=== PATIENT | female | born 1955 | race Caucasian/White ===

== ENCOUNTER 2022-02-25 11:51 | Outpatient (REF) | payer BC, SELFPAY | END 2022-02-25 11:52 | disposition home or self-care (01) | LOC: HO.BBR 11:51 | PROVIDERS: Visit Provider Physician Assistant Medical | DX: E83.119 Hemochromatosis, unspecified (principal) | CPT/HCPCS: 85018; 99195 ==

== ENCOUNTER 2022-03-06 14:33 | Outpatient (REF) | payer BC, SELFPAY | END 2022-03-06 14:34 | disposition home or self-care (01) | LOC: HO.BBR 14:33 | PROVIDERS: Visit Provider Physician Assistant Medical | DX: E83.119 Hemochromatosis, unspecified (principal) | CPT/HCPCS: 85014; 85018; 99195 ==

== ENCOUNTER 2022-03-12 14:30 | Outpatient (REF) | payer BC, SELFPAY | END 2022-03-12 14:31 | disposition home or self-care (01) | LOC: HO.BBR 14:30 | PROVIDERS: Visit Provider Physician Assistant Medical | DX: E83.119 Hemochromatosis, unspecified (principal) | CPT/HCPCS: 85014; 85018; 99195 ==

== ENCOUNTER 2022-03-20 10:46 | Outpatient (REF) | payer BC, SELFPAY | END 2022-03-20 10:47 | disposition home or self-care (01) | LOC: HO.BBR 10:46 | PROVIDERS: Visit Provider Physician Assistant Medical | DX: E83.119 Hemochromatosis, unspecified (principal) | CPT/HCPCS: 85018; 99195 ==

== ENCOUNTER 2022-12-25 07:22 | Day surgery (SDC) | payer MEDICARE, SELFPAY ==
--- NOTE | 2022-12-24 08:45 | HO.ANESPROP2 ---
Documented by User: Danielle Meneses NP 12/24/22 08:45 HPI - Anesthesia Eval Consult details Narrative: 67yo F for Colonoscopy [facility] Past Medical History Medical History (Updated 12/24/22 @ 07:28 by Cara Ambrosio, RN) History of dog bite HTN (hypertension) Neuropathy Tumor of ovary Surgical History Surgical History (Updated 12/24/22 @ 07:27 by Cara Ambrosio, RN) History of dilation and curettage History of removal of ovarian cyst History of repair of ACL Hx of total knee replacement Social History Social History Patient Tobacco Use Status: Former Tobacco user Are you DNR?: No Advance Directives: No Advance Directives Information Provided: Yes Nutrition Risks: No Nutritional Risk Meds Allergies Allergy/AdvReac Type Severity Reaction Status Date / Time No Known Allergies Allergy Verified 12/25/22 08:04 [No Known Allergies*] Home Medications Medication Instructions Recorded Confirmed Last Taken Type CoQ-10 12/24/22 Unknown History atenolol 25 mg tablet 25 mg PO DAILY 12/24/22 12/24/22 Unknown History calcium 12/24/22 Unknown History clonazepam 0.5 mg tablet 0.5 mg PO DAILY 12/24/22 12/24/22 Unknown History garlic 12/24/22 12/24/22 Unknown History magnesium gluconate 12/24/22 Unknown History metoprolol succinate 50 mg 50 mg PO DAILY 12/24/22 12/24/22 12/25/22 History tablet,extended release 24 hr red yeast rice 600 mg tablet 600 mg PO DAILY 12/24/22 12/24/22 Unknown History vitamin B complex 1 tab PO DAILY 12/24/22 12/24/22 Unknown History Exam Exam Date and Time: December 24, 2022 0845 Assessment and Plan Assessment Anesthesia Assessment: Chart Reviewed Documented by User: Cherry Renteria MD 12/25/22 09:04 [facility] Past Medical History Medical History (Updated 12/24/22 @ 07:28 by Cara Ambrosio RN) History of dog bite HTN (hypertension) Neuropathy Tumor of ovary Family History Family history of problems with anesthesia: No Surgical History Surgical History (Updated 12/24/22 @ 07:27 by Cara Ambrosio RN) History of dilation and curettage History of removal of ovarian cyst History of repair of ACL Hx of total knee replacement History of Problems with Anesthesia: No Social History Social History Patient Tobacco Use Status: Former Tobacco user Are you DNR?: No Advance Directives: No Advance Directives Information Provided: Yes Nutrition Risks: No Nutritional Risk Meds Allergies Allergy/AdvReac Type Severity Reaction Status Date / Time No Known Allergies Allergy Verified 12/25/22 08:04 [No Known Allergies*] Home Medications Medication Instructions Recorded Confirmed Last Taken Type CoQ-10 12/24/22 Unknown History atenolol 25 mg tablet 25 mg PO DAILY 12/24/22 12/24/22 Unknown History calcium 12/24/22 Unknown History clonazepam 0.5 mg tablet 0.5 mg PO DAILY 12/24/22 12/24/22 Unknown History garlic 12/24/22 12/24/22 Unknown History magnesium gluconate 12/24/22 Unknown History metoprolol succinate 50 mg 50 mg PO DAILY 12/24/22 12/24/22 12/25/22 History tablet,extended release 24 hr red yeast rice 600 mg tablet 600 mg PO DAILY 12/24/22 12/24/22 Unknown History vitamin B complex 1 tab PO DAILY 12/24/22 12/24/22 Unknown History Exam Airway Mallampati Class: II ( ultiple caps, implants) TM Dist: >3cm Neck ROM: Full Heart: rrr Lungs: cta Assessment and Plan Final Anesthetic Review Family History of Problems with Anesthesia: No History of Problems with Anesthesia: No NPO: Yes ASA Class: II Final Preanesthetic Review: No Changes in Pt Med Stat, Meds/Allgs Chart Reviewed and Consent Obtained/Reviewed Patient Risk: Intermediate Procedure Risk: Intermediate Anesthetic Plan Anesthetic Plan: MAC: Disposition: Standard PACU
[2022-12-25 06:50] VITALS: BMI 26.6
--- OUTSIDE RECORDS SUMMARY | 2022-12-25 07:24 | XMS_ITS | Continuity of Care Document ---
Author Name Unknown Organization [facility] Address [address] [place] [address]- Care Team Providers Care Hebrew Professor Name Role Phone Wicho Shi DO Primary Care Physician [phone] Encounter [facility] Date(s): 08/28/20 - 09/27/20 [facility] [address] [place] [id number] Attending Physician: Giovanni Chavis Admitting Physician: AdmtrGiovanni Referring Physician: Admtr ArBecki Allergies, Adverse Reactions, Alerts Substance Reaction Severity Status NKA Active Medications acetaminophen 325 mg oral tablet 650 mg, By Mouth, Every 6 hours, Refills 0, Maintenance, 05/03/19 6:55:18 EDT Start Date: 05/03/19 Status: Ordered Aspirin Tablet 325 mg, By Mouth, 2 times a day, Refills 0, Maintenance, 05/03/19 6:56:03 EDT Start Date: 05/03/19 Status: Ordered Atenolol = 25 mg, By Mouth, Daily, 0 Refills, Maintenance, 07/09/15 9:09:20 Start Date: 07/09/15 Status: Ordered CeleBREX 100 mg oral capsule 1 capsule = 100 mg, By Mouth, 2 times a day, 0 Refills, Maintenance, 08/09/19 10:58:00 EST Start Date: 08/09/19 Status: Ordered Clonazepam = 0.5 mg, By Mouth, Daily in AM, 0 Refills, Maintenance, 04/18/19 11:18:54 EDT Start Date: 04/18/19 Status: Ordered Diltiazem = 120 mg, By Mouth, Daily, 0 Refills, Maintenance, 05/02/19 8:06:15 EDT Start Date: 05/02/19 Status: Ordered docusate sodium 100 mg oral capsule 100 mg, 1, capsule, By Mouth, 2 times a day, Refills 0, Maintenance, 05/03/19 6:56:08 EDT Start Date: 05/03/19 Status: Ordered [place]-500 0 Refills, Maintenance, 01/06/16 13:20:20 Start Date: 01/06/16 Status: Ordered oxyCODONE 5 mg oral capsule 1 capsule = 5 mg, By Mouth, Every 6 hours, 0 Refills, Maintenance, 08/09/19 10:58:00 EST, Partial fill upon patient request Start Date: 08/09/19 Status: Ordered pantoprazole 40 mg oral delayed release tablet = 40 mg, By Mouth, Daily in AM, 0 Refills, Maintenance, 05/03/19 6:56:18 EDT, EC Tablet Start Date: 05/03/19 Status: Ordered Vitamin D3 By Mouth, Daily, 0 Refills, Maintenance Start Date: 06/23/11 Status: Ordered Problem List Condition Effective Dates Status Health Status Inform ant 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
--- OUTSIDE RECORDS SUMMARY | 2022-12-25 07:24 | XMS_ITS | Continuity of Care Document ---
Author Name Unknown Organization [facility] [place] Address [address] [place] [address]- Care Team Providers Care Associate Director Of Sales Name Role Phone Wicho Shi DO Primary Care Physician Encounter [facility] Date(s): 09/21/22 - 10/21/22 [facility] [address] [address]- Attending Physician: Giovanni Chavis Admitting Physician: Giovanni Chavis Referring Physician: Admtr ArBecki Allergies, Adverse Reactions, Alerts No Known Allergies Medications Magnesium Amino Acids Chelate By Mouth, 0 Refills, Maintenance, 06/10/22 10:11:00 EST, Partial fill upon patient request if the prescription is for a schedule II opioid drug. Start Date: 06/10/22 Status: Ordered metoprolol 25 mg oral tablet, extended release 25 mg, 1, tablet, By Mouth, Daily, Refills 0, Maintenance, 06/10/22 10:50:00 EST, Partial fill uponpatient request if the prescription is for a schedule II opioid drug. Start Date: 06/10/22 Status: Ordered [place]-500 0 Refills, Maintenance, 01/06/16 13:20:20 Start Date: 01/06/16 Status: Ordered Vitamin B12 0 Refills, Maintenance, 06/10/22 10:11:00 EST, Partial fill upon patient request if the prescription is for a schedule II opioid drug. Start Date: 06/10/22 Status: Ordered Vitamin D3 By Mouth, Daily, 0 Refills, Maintenance Start Date: 06/23/11 Status: Ordered Zinc = 140 mg, By Mouth, Daily, 0 Refills, Maintenance, 06/10/22 10:11:00 EST, Partial fill upon patientrequest if the prescription is for a schedule II opioid drug. Start Date: 06/10/22 Status: Ordered Problem List Condition Confirmation Course Effective Dates Status Health St atus Informant Vaginal atrophy Confirmed Active Benign essential HTN Confirmed Active Dyspareunia, female Confirmed Active Menopause Confirmed Active Osteopenia Confirmed Active Borderline serous cystadenoma of right ovary Confirmed Active Social History Social History Type Response Smoking Status Former smoker; Tobac co user in household: No; Other: Quit 30 years ago; entered on: 08/13/17 Sex Patient Care team information Care Team Personnel Name: Yasmany RN, Brock Wynn Position: [facility] RN Member Role: Primary Care Nurse Name: Wicho hSi DO Position: Reference Physician Member Role: PCP Address: Address: [address] [place] [address]- Name: Robbie FOWLER, Royce Charles Position: [facility] VACUUM EXTRACTOR OPERATOR MD Member Role: Lifetime VACUUM EXTRACTOR OPERATOR Physician Address: Address: [address] [place] [address]'s Health [place] [address]- Care Team Related Persons Name: JANNA COTTO Address: home [address] [place] [address] Name: JUSTIN JACKSON Address: home [address] [place] [address]
--- OUTSIDE RECORDS SUMMARY | 2022-12-25 07:24 | XMS_ITS | Continuity of Care Document ---
Author Name Unknown Organization [facility] Address [address] [place] [address], [address] [place] [address]- Care Team Providers Care Abalone Fisherman Name Role Phone Jesse Wicho MARTIN Primary Care Physician Encounter [facility] Date(s): 10/27/22 - 11/03/22 [facility] [address] [place] [address] Drive, [address] [place], [place] [address] Attending Physician: Kenny FOWLER, Ken Mckeon Referring Physician: Lyubov FOWLER, Uriah Goldsmith Allergies, Adverse Reactions, Alerts No Known Allergies Medications Alprazolam By Mouth, Refills 0, Maintenance, 10/27/22 13:18:00 EDT, Partial fill upon patient request if the prescription is for a schedule II opioid drug. Start Date: 10/27/22 Status: Ordered Clonazepam By Mouth, 3 times a day, 0 Refills, Maintenance, 10/27/22 13:18:00 EDT, Partial fill upon patient request if the prescription is for a schedule II opioid drug. Start Date: 10/27/22 Status: Ordered Magnesium Amino Acids Chelate By Mouth, 0 [...] opioid drug. Start Date: 06/10/22 Status: Ordered Quinlan-500 0 Refills, Maintenance, 01/06/16 13:20:20 Start Date: [...] serous cystadenoma of right ovary Confirmed Active Vital Signs Most recent to oldest [Reference Range]: 1 Height 162.5 cm (10/27/22 1:13 PM) Weight 70.4 kg (10/27/22 1:13 PM) Body Mass Index [18.5-24.99 kg/m2] 26.66 kg/m2 *H* (10/27/22 1:13 PM) Social History Social History Type Response Smoking Status Former smoker; Tobac co user in household: No; Other: Quit 30 years ago; entered on: 08/13/17 Sex Patient Care team information Care Team Personnel Name: Brock Jade RN Position: [facility] RN Member Role: Primary Care Nurse Name: Wicho Shi DO Position: Reference Physician Member Role: PCP Address: Address: [address] [place] [address]- Name: Royce Avalos MD Position: [facility] SAW SETTER MD Member Role: Lifetime SAW SETTER Physician Address: Address: [address] [place] [address] Women's Health [place] [address]- Care Team Related Persons Name: JANNA COTTO Address: home [address] [place] [address] Name: JUSTIN JACKSON Address: home [address] [place] [address]
--- OUTSIDE RECORDS SUMMARY | 2022-12-25 07:24 | XMS_ITS | Continuity of Care Document ---
Author Name Unknown Organization [facility] Address [address] [place] [address], [address] [place] [address]- Care Team Providers Care Fruit Pitter Name Role Phone Wicho Shi DO Primary Care Physician Encounter [facility] Date(s): 09/30/22 - 10/30/22 [facility] [address] [place] [address] Drive, [address] [place], [place] [address] Allergies, Adverse Reactions, Alerts No Known Allergies [...] opioid drug. Start Date: 06/10/22 Status: Ordered [place]-500 0 Refills, Maintenance, 01/06/16 13:20:20 Start Date: [...] team information Care Team Personnel Name: Yasmany MERAZ, Brock Wynn Position: [facility] RN Member Role: Primary Care Nurse Name: Wicho Shi DO Position: Reference Physician Member Role: PCP Address: Address: [address] [place] [address]- Name: Robbie FOWLER, Royce Charles Position: [facility] MATTRESS FINISHER MD Member Role: Lifetime MATTRESS FINISHER Physician Address: Address: [address] [place] [address] Women's Health [place] [address]- Care Team Related Persons Name: JANNA COTTO Address: home [address] [place] [address] Name: JUSTIN JACKSON Address: home [address] [place] [address]
--- OUTSIDE RECORDS SUMMARY | 2022-12-25 07:24 | XMS_ITS | Continuity of Care Document ---
Author Name Unknown Organization [facility] PIG CONVEYOR OPERATOR Oncolog y Address [address] [place] [address]- Care Team Providers Care Tents Assembler Name Role Phone Wicho Shi DO Primary Care Physician Encounter [facility] Date(s): 08/09/19 - 08/16/19 [facility] PIG CONVEYOR OPERATOR Oncology [address] [place] [address] [facility] Attending Physician: Mary Fischer MD Admitting Physician: Mary Fischer MD Referring Physician: Wicho Shi DO Allergies, Adverse Reactions, Alerts Substance Reaction Severity [...] 6:56:08 EDT Start Date: 05/03/19 Status: Ordered [place]-500 0 Refills, Maintenance, 01/06/16 13:20:20 Start Date: [...] Effective Dates Status Health Status Inform ant Vaginal atrophy(Confirmed) Active Benign essential HTN(Confirmed) Active Dyspareunia, female(Confirmed) Active Menopause(Confirmed) Active Osteopenia(Confirmed) Active 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 Vital Signs Most recent to oldest [Reference Range]: 1 Height 163 cm (08/09/19 10:39 AM) Weight 67.8 kg (08/09/19 10:39 AM) Oxygen Saturation [94-100 %] 100 % (08/09/19 10:39 AM) Pulse Rate [55-90 bpm] 109 bpm *H* (08/09/19 10:39 AM) Body Mass Index [18.5-24.99] 25.52 *H* (08/09/19 10:39 AM) Blood Pressure [90-138/55-84 mm Hg] 147/ 96mm Hg *H* (08/09/19 10:39 AM) Respiratory Rate [16-30 br/min] 18 br/mi n (08/09/19 10:39 AM) Temperature [96.8-100.4 DegF] 98 DegF (08/09/19 10:39 AM) Mode of Delivery (Oxygen) Room air (08/09/19 10:39 AM) Blood pressure sites Arm, right (08/09/19 10:39 AM) Temperature Route Oral (08/09/19 10:39 AM) Dry Weight 67.8 kg (08/09/19 10:39 AM) Weight Obtained Via Standing scale (08/09/19 10:39 AM) Dry Weight Obtained Via Standing scale (08/09/19 10:39 AM) Social History Social History Type Response Smoking Status Former smoker; Tobac co user in household: No; Other: Quit 30 years ago; entered on: 08/13/17 Sex
--- OUTSIDE RECORDS SUMMARY | 2022-12-25 07:24 | XMS_ITS ---
Author Name Sachin Riley Jr Address [address] [place] [address] Organization [facility] Address [address] [place] [address] Care Team Providers Care Bet Taker Name Role Phone Osvaldo AlanisSachin Unavailable [phone] PROBLEMS Type Condition ICD9-CM Code QRF08-PO Code Onset Dates Condition Status SNOMED Code Problem Fatty liver K76.0 Active 372643752 Problem Gastroesophageal reflux disease without esophagitis K21.9 Active 15878375 5 Problem Gallbladder polyp K82.4 Active 426201 003 Problem Gallstones K80.20 Active 824434449 Problem Colon cancer screening Z12.11 Active 787013718 ALLERGIES No Known Allergies ENCOUNTERS Encounter Location Date Diagnosis [facility] [address] [place] [id number] Dec, [facility] [address] [place] [phone] Oct, [facility] [address] [place] [phone] Oct, Gastroesophageal reflux disease without esophagitis K21.9 and Colon cancer screening Z12.11 [facility] [address] [place] [phone] Aug, [facility] [address] [place] [phone] Aug, [facility] [address] [place] [address] [place] [id number] Jul, [facility] [address] [place] [address] May, [facility] [address] [place] [address] Apr, [facility] [address] [place] [address] Apr, [facility] [address] [place] [address] Apr, Fatty liver K76.0 ; Colon cancer screening Z12.11 ; Gallbladder polyp K82.4 and Gallstones K80.20 IMMUNIZATIONS No Known Immunizations SOCIAL HISTORY Qualifiers Date Former Smoker REASON FOR REFERRAL FUNCTIONAL STATUS PLAN OF CARE Activity Details VITAL SIGNS Weight 155 lbs 2022-10-26 Weight 153 lbs 2017-04-30 Height 64.5 in 2022-10-26 Height 64.5 in 2017-04-30 BMI 26.19 kg/m2 2022-10-26 BMI 25.85 kg/m2 2017-04-30 Heart Rate 64 /min 2017-04-30 Temperature 97.7 degrees Fahrenheit Blood pressure systolic 000 mm Hg Blood pressure diastolic 00 mm Hg 2022-10 MEDICATIONS Medication Instructions Dosage Frequency Start Date End Date Duration Status Red Yeast Rice A ctive Atenolol 25 MG Orally Once a day 1 tablet 24h Active Metoprolol Succinate ER 50 MG 90 Active Calcium Active CoQ-10 Active Colyte with Flavor Packs 240 GM Orally Over the specified time. As directed 1 day(s) Active Garlic Active MiraLax (colon prep) 17 GM/SCOOP Orally begin at 5:00 p.m. the day before the procedure mixed with Gatorade or Crystal Light Oct, 1 day Active Magnesium Gluconate Active Omeprazole 20 MG Orally Once a day 1 capsule 30 minutes before morning meal 24h Oct, 30 day(s) Active Vitamin B Complex Active clonazePAM 0.5 MG Orally QD 1 tablet 24h Active PROCEDURES Procedure Date Ordered Result Body Site DOC RSN FOR NOT SCREEN/REC F/U HBP October 26, 2022 Pt scrn tbco id as non user October 26, 2022 DOC MEDS VERIFIED W/PT OR RE October 26, 2022 COLORECTAL CA SCREEN DOC REV October 26, 2022 RESULTS Name Result Date Reference Range GI BIOPSY 2017-08-20 G.I. BIOPSY REASON FOR VISIT screening, screening, colonoscopy, Patient presents today for consultation, Pt no show, fatty liver,elevated LFT's, results of colonoscopy biopsy, screening colonoscopy, add an EGD, needs different script for moviprp/not covered, Put on one year OV follow up, PATIENT PRESENTS TODAY FOR fatty liver,transaminasemia Insurance Providers Health Insurance Type Health Plan Insurance Address Health Plan Insurance Phone Health Plan Insurance Name Health Plan Coverage Dates Member ID Patient Relationship to Subscriber Patient Address Patient Phone Patient Name Patient Date of Subscriber ID Subscriber Name Subscriber Date of Group No [employer] [address] [facility] [id number] [employer] self LONNIE JACKSON [id number]
--- OUTSIDE RECORDS SUMMARY | 2022-12-25 07:24 | XMS_ITS | Continuity of Care Document ---
Author Name Unknown Organization [facility] Address [address] [place] [address], [address] [place] [address]- Care Team Providers Care Continuity Director Name Role Phone Wicho Shi DO Primary Care Physician Encounter [facility] Date(s): 10/27/22 - 11/26/22 [facility] [address] [place] [address], [address] [place] [address]- Attending Physician: Giovanni Chavis Admitting Physician: Giovanni Chavis Referring Physician: AdmtrGiovanni Allergies, Adverse Reactions, Alerts No Known Allergies [...] opioid drug. Start Date: 06/10/22 Status: Ordered [place]-500 0 Refills, Maintenance, 01/06/16 13:20:20 Start Date: [...] Team Personnel Name: Brock Jade RN Position: [facility] RN Member Role: Primary Care Nurse Name: Wicho Shi DO Position: Reference Physician Member Role: PCP Address: Address: [address] [place] [address]- Name: Robbie FOWLER, Royce Charles Position: [facility] INSTALLATION DRAFTER MD Member Role: Lifetime INSTALLATION DRAFTER Physician Address: Address: [address] [place] [address]'s Health [employer] [place] [address]- Care Team Related Persons Name: JANNA COTTO Address: [address] [place] [address] Name: JUSTIN JACKSON Address: home [address] [place] [address]
--- OUTSIDE RECORDS SUMMARY | 2022-12-25 07:24 | XMS_ITS | Continuity of Care Document ---
Author Name Unknown Organization [facility] Address [address] [place] [address]- Care Team Providers Care Voice Network Engineer Name Role Phone Wicho Shi DO Primary Care Physician Encounter [facility] Date(s): 07/31/19 - 07/31/[address] [address]- [facility] Attending Physician: Not on Staff, Attending MD Allergies, Adverse Reactions, Alerts Substance Reaction Severity [...] 07/09/15 9:09:20 Start Date: 07/09/15 Status: Ordered Clonazepam = 0.5 mg, By [...] 6:56:08 EDT Start Date: 05/03/19 Status: Ordered [place]-500 0 Refills, Maintenance, 01/06/16 13:20:20 Start Date: 01/06/16 Status: Ordered pantoprazole 40 mg oral delayed [...]
--- OUTSIDE RECORDS SUMMARY | 2022-12-25 07:24 | XMS_ITS | Continuity of Care Document ---
Author Name Unknown Organization [facility] Address [address] [place] [address]- Care Team Providers Care Die Baker Name Role Phone Wicho Shi DO Primary Care Physician Encounter [facility] Date(s): 04/11/21 - 06/05/21 [facility] [address] [place] [address]- Attending Physician: Jolly Cook MD Admitting Physician: Jolly Cook MD Referring Physician: Wicho Shi DO Allergies, [...] 6:56:08 EDT Start Date: 05/03/19 Status: Ordered [place]-500 0 Refills, Maintenance, 01/06/16 13:20:20 Start Date: [...]
--- OUTSIDE RECORDS SUMMARY | 2022-12-25 07:24 | XMS_ITS | Continuity of Care Document ---
Author Name Unknown Organization [facility] INFORMATION RESOURCES MANAGER Oncolog y Address [address] [place] [address]- Care Team Providers Care Laundry Manager Name Role Phone Wicho Shi DO Primary Care Physician Encounter [facility] Date(s): 05/30/20 - 09/27/20 [facility] INFORMATION RESOURCES MANAGER Oncology [address] [place] [address]- Attending Physician: Vero Benitez MD Admitting Physician: Vero Benitez MD Referring Physician: Wicho Shi DO Allergies, [...] 6:56:08 EDT Start Date: 05/03/19 Status: Ordered [place]-500 0 Refills, Maintenance, 01/06/16 13:20:20 Start Date: [...]
--- OUTSIDE RECORDS SUMMARY | 2022-12-25 07:24 | XMS_ITS | Continuity of Care Document ---
Author Name Unknown Organization [facility] Address [address] [place] [address]- Care Team Providers Care Systems Designer Name Role Phone Wicho Shi DO Primary Care Physician [phone] Encounter [facility] Date(s): 05/29/21 - 06/28/21 [facility] [address] [place] [address]- Attending Physician: Giovanni Chavis Admitting Physician: AdmtrGiovanni [...] 6:56:08 EDT Start Date: 05/03/19 Status: Ordered [place]-500 0 Refills, Maintenance, 01/06/16 13:20:20 Start Date: [...]
--- OUTSIDE RECORDS SUMMARY | 2022-12-25 07:24 | XMS_ITS | Continuity of Care Document ---
Author Name Unknown Organization [facility] Address [address] [address]- Care Team Providers Care Stockroom Helper Name Role Phone Wicho Shi DO Primary Care Physician Encounter [facility] Date(s): 08/21/22 - 09/20/22 [facility] [address] [address]- Allergies, Adverse Reactions, Alerts No Known Allergies [...] opioid drug. Start Date: 06/10/22 Status: Ordered [place]-500 0 Refills, Maintenance, 01/06/16 13:20:20 Start Date: [...] Team Personnel Name: Brock Jade RN Position: [facility] RN Member Role: Primary Care Nurse Name: Wicho Shi DO Position: Reference Physician Member Role: PCP Address: Address: [address] [place] [id number]- Name: Robbie FOWLER, Royce Charles Position: [facility] E MAIL SYSTEM ADMINISTRATOR MD Member Role: Lifetime E MAIL SYSTEM ADMINISTRATOR Physician Address: Address: [address] [place] [address] [place] [address]- Care Team Related Persons Name: JANNA COTTO Address: home [address] [place] [address] Name: JUSTIN JACKSON Address: home [address] [place] [address]
--- OUTSIDE RECORDS SUMMARY | 2022-12-25 07:24 | XMS_ITS | Continuity of Care Document ---
Author Name Unknown Organization [facility] Address [address] [place] [id number]- Care Team Providers Care Marketing Consultant Name Role Phone Wicho Shi DO Primary Care Physician [phone] Encounter [facility] Date(s): 06/30/21 - 07/30/21 [facility] [address] [place] [id number]- Attending Physician: Giovanni Chavis Admitting Physician: AdmtrGiovanni [...] 6:56:08 EDT Start Date: 05/03/19 Status: Ordered [place]-500 0 Refills, Maintenance, 01/06/16 13:20:20 Start Date: [...]
[2022-12-25] MEDS: Lactated Ringers 1,000 ML 100 ML IVCONT (07:47)
[2022-12-25 08:03] VITALS: BP 166/93; PULSE 78; RESP 18; TEMP 36.4; O2SAT 97
--- NOTE | 2022-12-25 08:54 | MHC.SHP ---
Pre-Procedural Eval Section A Date of Service: 12/25/22 Section B Chief Complaint: Encounter for screening for malignant neoplasm of Details of Present Illness: see H&P no changes Relevant Family History (Specify if Yes): No Relevant Social History: None Present Medications: see Short Stay Collaborative assessment Medical History: No relevant PMH Allergies: Allergies Allergy/AdvReac Type Severity Reaction Status Date / Time No Known Allergies Allergy Verified 12/25/22 08:04 [No Known Allergies*] Review of Systems Sugical H&P ROS: Negative: Constitution, Cardiovascular, Respiratory, Neurological, Psychiatric, Hem-Onc, Allergic/Immunologic, Gastrointestinal, Genitourinary, Musculoskeletal, Integumentary, Endocrine and Eyes/Ears/Nose/Throat Exam Surgical H&P Exam: Normal: HEENT, Normal: Heart, Normal: Lungs, Normal: Extremities, Normal: Abdomen, Normal: Skin and Normal: Neurological Plan Diagnosis/Plan: Unchanged I have reviewed the history and physical and performed a pertinent physical examination on my patient. No changes have occurred unless specified. Time Spent With Patient Time: Total time managing care of this patient today ____ minutes.
--- NOTE | 2022-12-25 09:21 | PM.OP ---
Brief Operative Note Date of Service: 12/25/22 Pre-op diagnosis: screening Post-op diagnosis: same Procedure: colonoscopy Surgeon: Sachin Riley Anesthesia: MAC Was an Tunnel Inspector used for this Procedure?: No Estimated blood loss (mL): 0 Pathology: other Condition: stable Disposition: PACU
[2022-12-25 09:24] VITALS: BP 119/63; PULSE 68; RESP 16; TEMP 36.3; O2SAT 94
--- NOTE | 2022-12-25 09:39 | OP_ITS ---
DATE OF SERVICE: 12/25/2022 SURGEON: Sachin Riley MD INDICATIONS: Colon cancer screening. PREOPERATIVE DIAGNOSIS: POSTOPERATIVE DIAGNOSIS: PROCEDURE PERFORMED: Colonoscopy to the terminal ileum with snare polypectomy. ESTIMATED BLOOD LOSS: COMPLICATIONS: ANESTHESIA: Medications: Monitored anesthesia care. ASSISTANTS: SPECIMENS: DESCRIPTION OF PROCEDURE: A history and physical was performed. The risks and benefits of the procedure were explained to the patient. Informed consent was obtained. The patient was placed in the left lateral decubitus position. A digital rectal exam was performed and was found to be normal. The Olympus pediatric video colonoscope was introduced into the rectum and advanced to the cecum without difficulty. The cecum was identified by transillumination, palpation, and identification of the ileocecal valve. Examination was performed. The scope was removed. She tolerated the procedure well and was returned to the recovery room in stable condition. FINDINGS: The terminal ileum was examined and appeared normal. The visualized colonic mucosa was normal. The quality of the prep was good. A single polyp was identified at 70 cm from the anal verge. This was removed with a snare. The polyp was pedunculated and measured approximately 12 mm. No other polyps were identified. There was mild sigmoid diverticulosis. Retroflexed examination showed some small internal hemorrhoids. IMPRESSION: Colon polyp. RECOMMENDATION: Follow up with the biopsy results. MD NICOL Chua/MODL / [id number]
[2022-12-25 09:44] VITALS: BP 127/79; PULSE 65; RESP 16; TEMP 36.1; O2SAT 97
== END 2022-12-25 10:25 | disposition home or self-care (01) ==
PROVIDERS: PCP Family Medicine; Visit Provider Internal Medicine Gastroenterology
PROC: 0DJD8ZZ Inspection of Lower Intestinal Tract, Via Natural or Artificial Opening Endoscopic (ICD-10-PCS; CPT 45378; principal; 2022-12-25 08:50)
DX: Z12.11 Encounter for screening for malignant neoplasm of colon (principal); Z86.010 Personal history of colon polyps; K51.40 Inflammatory polyps of colon without complications; K57.30 Diverticulosis of large intestine without perforation or abscess without bleeding; K64.8 Other hemorrhoids; K21.9 Gastro-esophageal reflux disease without esophagitis; I10 Essential (primary) hypertension; D39.11 Neoplasm of uncertain behavior of right ovary; G62.9 Polyneuropathy, unspecified; Z79.899 Other long term (current) drug therapy; Z87.891 Personal history of nicotine dependence
CPT/HCPCS: 45385; 88305

== ENCOUNTER 2023-07-05 11:30 | Outpatient (AMB) | payer BC, SELFPAY ==
--- NOTE | 2023-07-05 11:31 | MHC.OFFVIS ---
Intake Vital Signs 07/05/23 11:50 Height 5 ft 4 in Weight 155 lb BMI 26.6 BP 138/70 Blood Pressure Location Lt brachial Position Sitting Respiration 14 Pulse 65 Pulse Source Pulse Oximeter Pulse Oximetry (%) 97 Oxygen Delivery Method Room Air Intake Visit Reasons: Lumbar Spinal Stenosis/lvm Intake Note: Patient comes in for initial visit was referred Rheumatology. Allergies No Known Allergies [No Known Allergies*] Allergy (Verified 07/05/23 11:51) HPI HPI Comments History of Present Illness Details Gloria is very pleasant 67 years old female who is in my office complaining on widespread pain all over the body. She reports pain in the neck bilateral shoulder thoracic spine lumbar spine bilateral hips bilateral lower buttocks and bilateral lower feet. She reports that she cannot feel sometimes her feet because of numbness. She reports also burning sensation in bilateral feet. She reports her pain started 13 years ago. She admits insomnia cannot do activities of daily living she can take care of herself but she cannot function normally. She is retired individual. She is self mobile. Movements aggravate her pain and oral medications make her pain worse. The pain is most severe in the morning and this severe in the afternoon. The variation that of pain a very small. In terms of tissue damage she reports her pain is jumping, flashing, shooting, stabbing, lancinating, sharp, cutting, lacerating, spreading, radiating, piercing. She reports that she had physical therapy she denies chiropractic manipulations. She reports the studies of the lumbar spine some of them dictated as below. She was offered ultrasound-guided injection in the office of pain management in [facility] she does not remember the name of the practitioner but she promised to bring us the name of the practitioner. Her past medical history significant for hypertension fatigue and arthritis. She denies past surgical history. Social history she is retired individual. She admits drinking alcohol wine couple times a week she denies smoking she denies recreational drugs. [facility] Medical History (Updated 07/05/23 @ 16:58 by Denton Saini MD) History of dog bite Tumor of ovary Neuropathy HTN (hypertension) Surgical History Hx of total knee replacement History of dilation and curettage History of removal of ovarian cyst History of repair of ACL Social History Patient Tobacco Use Status: Former Tobacco user Review of Systems Const Denies fatigue, Denies weight gain and Denies weight loss Eyes Denies blurry vision ENT Reports Normal hearing present, Reports neck pain and Denies sore throat Card Denies dyspnea Resp Denies cough and Denies dyspnea GI Denies constipation and Denies diarrhea Denies urinary frequency and Denies dysuria Musc Reports as per HPI, Reports back pain, Reports myalgias, Reports arthralgias, Reports neck pain, Reports numbness, Reports radiating pain into limb, Reports tingling and Reports other (Numbness and burning bilateral feet) Neuro Reports Normal hearing present, Denies Abnormal speech present, Denies confusion, Reports numbness, Denies Sensory deficit (Neuro), Reports tingling and Denies tremor(s) Psych Reports abnormal sleep pattern, Denies confusion and Denies depression Endo Denies fatigue Physical Exam Vital Signs: Last Vital Signs Pulse 65 07/05/23 11:50 Resp 14 07/05/23 11:50 BP 138/70 07/05/23 11:50 Pulse Ox 97 07/05/23 11:50 Oxygen Delivery Method Room Air 07/05/23 11:50 BMI result Body Mass Index 26.6 Const General: no acute distress; No confusion Orientation/consciousness: patient oriented x3 and No confusion Eyes General: appearance normal, both eyes and all related structures Pupils: Equal, round and reactive pupils present EOM: EOMs intact bilaterally Neck Neck: Yes full ROM Chest Chest palpation & inspection: normal inspection of the chest Resp Effort & Inspection: normal respiratory effort, able to speak in complete sentences, normal respiratory pattern, no audible wheezes and no cough Cardio Jugular venous distension: no JVD GI Inspection: Yes normal to inspection Back/Spine/Pelvis Other: Able to stand on bilateral tiptoes and bilateral heels. Able to lift the great toe from the ground and separation of the rest of the toes. Valsalva maneuver negative for pain increase. Denies pelvic organ dysfunction. Flexing forward and flexing backwards aggravates her pain. Reports that when she is pushing cart in the supermarket it is easier for her to lean forward on the cart. However flexing backwards aggravates her pain equally or may be even more than flexing forward. Loading test is positive bilaterally. Yifan test is negative bilaterally. SLR test is negative bilaterally. Lassegue test is negative bilaterally. Neuro General: patient oriented x3, gait normal and No confusion Cranial nerves: Yes CN's II-XII intact bilaterally, Yes Equal, round and reactive pupils present, Yes Normal hearing present and Yes Ability to bilaterally elevate shoulders present Speech: No Abnormal speech present Gait exam (Neuro): Normal gait present Motor exam (neuro): 5/5 motor strength present throughout Sensory Exam: No Sensory deficit (Neuro) Extrem General: No pedal edema Psych Speech and movement: Normal speech and movement present Affect: normal affect Attitude: cooperative Thought process: Normal thought process present Thought content: Normal thought content present Insight: Good insight present (Psych) Judgement: Good judgement present (Psych) Results Reviewed Results Reviewed: X-ray lumbar spine 08/25/2022. Transitional anatomy with lumbarization of the S1 vertebral body. There is liver curvature of lumbar sacral spine centered at L3-L4. Stepwise retrolisthesis beginning at L1. Moderate multilevel degenerative disc disease and facet arthropathy. Facet arthropathy is most notable in the lower lumbar spine. Impression: Transitional lumbosacral anatomy. MRI of the lumbar spine 02/05/2022. Findings: The study assumes 5 non read bearing lumbar type vertebral bodies. S1 is transitional vertebra. Lumbarization of S1. The numbering of the current studies different from the prior study which assumes the S1 level as L5 level the current numbering is concurrent with a lumbar x-ray. The conus medullaris has normal caliber and signal intensities. It terminates at L1-L2 level. The nerve roots of the cauda equina appear crowded and angulating due to more distal stenosis. On sagittal images there is retrolisthesis L2 overall L3-L5 overall S1 no vertebral body fracture is seen. The bone marrow signal and he heterogenous consistent with degenerative changes. Marginal osteophytes disc desiccation disc space narrowing and degenerative endplate changes are noted at T12 L1-L2 and L5-S1 levels progressed to single prior study. The paraspinal muscles to the lower lumbar spine to upper sacral region showed diffuse atrophy and partial fatty replacement T11-T12 mild concentric disc bulge central canal is mildly stenotic without cord compression. Ligamentum flavum is hypertrophic mildly. Facet joint mildly degenerative. Mild bilateral neural foraminal narrowing. T12-L1 unremarkable L1-L2 mild concentric disc bulge extending to subarticular regions bilaterally. Superimposed small right foraminal extruded disc which was not seen on the prior study. The right neural foramina is moderately to significantly narrowed with right L1 nerve impingement. Mild central canal stenosis. The ligamentum flavum a mildly hypertrophic. The facet joints are mildly degenerative. Minimal left neural foraminal narrowing. This level appear significantly progressed since the prior study. L2-L3 level has mild concentric disc extending to subarticular regions bilaterally slightly more on the left. Mild stenosis without definite nerve root compression. Mild degenerative facet arthropathy bilaterally. Facet trace is joint infusion. Mild right and [id number] left neural foraminal narrowing. L3-L4 mild concentric osteo fight/disc bulge extending to subarticular regions bilaterally motor were the right. Mild stenosis more at the right lateral recess right L4 nerve root impingement. Trace facet effusion bilaterally. Mild degenerative facet arthropathy bilaterally. Moderate right and mild left neural foraminal narrowing. L4-5 concentric osteophyte disc bulge extending to foramina bilaterally the central canal is moderately to significantly stenosis. Flattening of posterior aspect of thecal sac by epidural lipomatosis. Ligamentum flavum widely hypertrophic. Facet joints are degenerative slightly more on the left. Moderate bilateral neural foraminal narrowing. L5-S1 concentric osteophyte disc bulge extending to subarticular regions bilaterally motor rode the left. The central canal is moderately to severely stenotic. Encroachment the compression of the central nerve roots worse on the left. The OM2 flavum is hypertrophic. The facet joints are degenerative more prominent left. Mild right and moderate left neural foraminal narrowing. S1 is transitional vertebra. S1-S2 level shows no disc herniation or stenosis. No left neural foraminal narrowing. There is mild degenerative facet arthropathy. This level is unchanged. Assessment & Plan Assessment & Plan (1) Vertebrogenic low back pain: Code(s): M54.51 - Vertebrogenic low back pain Plan: (2) Spondylosis of lumbar region without myelopathy or radiculopathy: Code(s): M47.816 - Spondylosis without myelopathy or radiculopathy, lumbar region Plan: (3) Spondylolisthesis, lumbar region: Code(s): M43.16 - Spondylolisthesis, lumbar region Plan: Plan Multiple pain generators could be addressed with this patient. Obviously she has facet arthropathy and transitional anatomy. We agreed today that I will order her medial branch block L3-L4 L5 she has transitional anatomy therefore L5 will be free transverse process. And it will be free confluence of superior articular process and transverse process at L5 level. S1 level will be the lowest lumbar vertebra because there is lumbarization of S1. On she requests me to perform this procedure with mild sedation I will order her Ativan for this injection. Vertebrogenic pain could be not be excluded. I would probably have to request her to bring me her disc for the evaluation of the images and if there are significant Modic type 1 and type 2 changes will be find I will consider her basivertebral nerve RFA Itracept. Coding Level of Care Code New Pt Level 3 (73034) Diagnoses Vertebrogenic low back pain M54.51 Spondylosis of lumbar region without myelopathy or radiculopathy M47.816 Spondylolisthesis, lumbar region M43.16
[2023-07-05 11:50] VITALS: BP 138/70; PULSE 65; RESP 14; O2SAT 97; BMI 26.6
== END 2023-07-05 12:11 | disposition home or self-care (01) ==
PROVIDERS: PCP Family Medicine; Referring Provider Internal Medicine Rheumatology; Visit Provider Anesthesiology
DX: M54.51 Vertebrogenic low back pain (principal); M47.816 Spondylosis without myelopathy or radiculopathy, lumbar region; M43.16 Spondylolisthesis, lumbar region
CPT/HCPCS: 99203

== ENCOUNTER → 2023-07-05 11:30 | Outpatient (BNVA) | payer BC, SELFPAY | PROVIDERS: PCP Family Medicine; Referring Provider Internal Medicine Rheumatology; Visit Provider Anesthesiology ==